=== PATIENT | male | born 1970 | race Caucasian/White ===

== ENCOUNTER 2017-10-26 19:40 | Emergency (ER) | payer SELFPAY ==
[2017-10-26 19:55] VITALS: BP 125/84
[2017-10-26] MEDS ORDERED: Ibuprofen TAB* 400 MG PO ONE (20:08)
[2017-10-26] MEDS ORDERED: Tetan/Diph/Pertus SYR(Tdap)* 0.5 ML SYR(BOOSTRIX) use SYR IM ONE (20:08)
[2017-10-26] MEDS ORDERED: Silver Sulfadiazine 1%* 20 GM TOPICAL ONE ×2 (20:08→20:36)
--- NOTE | 2017-10-26 20:11 | UC ---
HPI BURN - HPI Summary HPI Summary: 47 y/o male presents to the urgent care c/o B/l thumbs burned w/ a hot glue around 1630Pm today. Pt reports he works in the [email or web address] and he was gluing some art pieces w/ the hot gun. He accidentally put his thumbs on the hot glue. Pain is 7/10 burning. He only finds relief by placing thumbs in ice water. He took Ibuprofen this around noon time to alleviate a REDMOND. Pt denies numbness or tingling sensation over thumbs and can move them w/o any difficulty. Pt is not UTD w/ tetanus vaccine. Pt denies fever, SOB, chest pain, abdominal pain, N/V/D - History of Current Complaint Chief Complaint: UCBurn Stated Complaint: BURNED THUMBS Time Seen by Provider: 10/26/17 19:59 Hx Obtained From: Patient Occurred: Hours Ago - 2hrs ago Length of Exposure: Seconds Onset Severity: Moderate Current Severity: Moderate Pain Intensity: 7 Pain Scale Used: 0-10 Numeric Location: Other - B/L thumbs Character: Direct Thermal Contact, Blisters: Ruptured Aggravating Factor(s): Other - touch Alleviating Factor(s): Cool Soaks Associated Signs & Symptoms: Positive: Negative Occupational Injury: Yes - Allergy/Home Medications Allergies/Adverse Reactions: Allergies Allergy/AdvReac Type Severity Reaction Status Date / Time amoxicillin Allergy Rash Verified 10/26/17 19:56 CRAB Allergy Intermediate RED BODY Uncoded 10/26/17 19:56 Home Medications: Home Medications Vitamin B Complex TAB* [B Complex-50*] 1 tab PO DAILY 10/26/17 [History Confirmed 10/26/17] levOCARNitine tartrate [l-Carnitine] 10/26/17 [History Confirmed 10/26/17] PMH/Surg Hx/FS Hx/Imm Hx Previously Healthy: Yes Other Endocrine History: Vitamin d defficiency Psychological History: Depression - Surgical History Surgical History: Yes Surgery Procedure, Year, and Place: Right testicle removed 11/2013 - Social History Alcohol Use: Occasionally Alcohol Amount: 1-2 PER DAY Substance Use Type: None Smoking Status (MU): Never Smoked Tobacco Have You Smoked in the Last Year: No - Immunization History Most Recent Influenza Vaccination: none Most Recent Tetanus Shot: within last 5 years Most Recent Pneumonia Vaccination: no Review of Systems Constitutional: Negative Skin: Other - B/L thumbs burn w/ a hot glue Eyes: Negative ENT: Negative Respiratory: Negative Cardiovascular: Negative Gastrointestinal: Negative Genitourinary: Negative Motor: Negative Neurovascular: Negative Musculoskeletal: Other: - B/l thumb pain s/p burn Neurological: Negative Psychological: Negative Is Patient Immunocompromised?: No All Other Systems Reviewed And Are Negative: Yes Physical Exam - Summary Physical Exam Summary: Vital Signs Reviewed: Yes General: well developed, well nourished male sitting in the examining table w/o any apparent distress. Eyes: Positive: Conjunctiva Clear - PERRLA, EOMI ENT: Positive: Normal ENT inspection, Hearing grossly normal, Pharynx normal, TMs normal Neck: Positive: Supple, Nontender, No Lymphadenopathy Respiratory: Positive: Chest nontender, Lungs clear, Normal breath sounds Cardiovascular: Positive: RRR, No Murmur, Pulses Normal Abdomen Description: Positive: Nontender, No Organomegaly, Soft. Negative: CVA Tenderness (R), CVA Tenderness (L) Bowel Sounds: Positive: Present Musculoskeletal: Positive: Strength Intact, ROM Intact, No Edema Neurological Exam: Normal Psychological Exam: Normal Skin: Positive: rashes -Skin: Positive: B/L thumbs w/ superficial partial thickness erythema and discrete break in the skin of the left thumb. Left thumb burn is 1.0x2.0cm in size and Rt thumb burn is 1.6x 1.0cm in size, tender to palpation. mild swelling observed. skin blanches w/ pressure, FROM of the all fingers, sensation intact, brisk capillary refill. Triage Information Reviewed: Yes Vital Signs: Initial Vital Signs Temp 97.4 F 10/26/17 19:51 Pulse 68 10/26/17 19:51 Resp 16 10/26/17 19:51 BP 125/84 10/26/17 19:51 Pulse Ox 100 10/26/17 19:51 Burn Calculation - [place] Formula for Fluid Resuscitation Weight: 72.575 kg 24 -Hour Fluid Replacement: 0.0 Course/Dx Burn - Course Course Of Treatment: 47 y/o male presents to the urgent care c/o B/l thumbs burned w/ a hot glue around 1630Pm today. Pt reports he works in the [email or web address] and he was gluing some art pieces w/ the hot gun. He accidentally put his thumbs on the hot glue. Pain is 7/10 burning. He only finds relief by placing thumbs in ice water. He took Ibuprofen this around noon time to alleviate a REDMOND. Pt denies numbness or tingling sensation over thumbs and can move them w/o any difficulty. Pt is not UTD w/ tetanus vaccine. Pt denies fever , SOB, chest pain, abdominal pain, N/V/D. Hx obtained. Positive: B/L thumbs w/ superficial partial thickness erythema and discrete break in the skin of the left thumb. Left thumb burn is 1.0x2.0cm in size and Rt thumb burn is 1.6x 1.0cm in size, tender to palpation. mild swelling observed on examination. Pt Given Tdap vaccine by nurse. Silver sulfadiazine cream applied over both thumbs and the rest dispense home.B/L thumbs dressed w/ tube dressings. Pt also given ibuprofen PO at the clinic for pain. Pt tolerated well medication and Rx sent to pharmacy. D/c instructions explained. Pt left the clinic hemidynamically stable, A&OX3 - Differential Dx - Burn Differential Diagnoses: Chemical Burn, Direct Contact Thermal Burn, Other - Diagnoses Clinic Provider Diagnoses: 1- B/L thumbs superficial burn Discharge - Sign-Out/Discharge Documenting (check all that apply): Discharge/Admit/Transfer - D/C home - Discharge Plan Condition: Stable Disposition: HOME Prescriptions: Ibuprofen TAB* [Motrin TAB* 600 MG] 600 mg PO Q6H PRN #30 tab PRN Reason: Pain Silver Sulfadiazine 1%* [SILVadine 1%*] 1 applic TOPICAL BID #1 tube Patient Education Materials: Superficial Burn (ED) Referrals: Montana Real MD [Primary Care Provider] - 3 Days Additional Instructions: 1- Please apply Silver Silvadene cream around the superficial burn of the left cheek as directed 2- Take ibuprofen PO 600mg PO q6-8hrs prn to alleviate pain and swelling. Avoid flexion w/ your thumbs 3- If redness and swelling or signs of infection please return to the urgent care or f/u w/ your PCP for further treatment - Billing Disposition and Condition Condition: STABLE Disposition: HOME
== END 2017-10-26 20:45 | disposition home or self-care (01) ==
LOC: UCEAST 19:40
DX: T23.212A Burn of second degree of left thumb (nail), initial encounter (principal); T23.211A Burn of second degree of right thumb (nail), initial encounter; X12.XXXA Contact with other hot fluids, initial encounter; Y93.89 Activity, other specified; Y92.251 Museum as the place of occurrence of the external cause; Y99.0 Civilian activity done for income or pay; Z23 Encounter for immunization; Z88.0 Allergy status to penicillin; E55.9 Vitamin D deficiency, unspecified; F32.9 Major depressive disorder, single episode, unspecified
CPT/HCPCS: 90715; 99213; A9270-GY; G0463

== ENCOUNTER 2019-06-25 | Inpatient (IN) | payer OTHER ==
[2019-06-25] MEDS ORDERED: NS 0.9% 1000 ML** 2,000 ML IV ONE ×2 (00:24→00:25)
[2019-06-25] MEDS ORDERED: Ondansetron INJ* 2 MG/ML VIAL IV ONE (00:25)
[2019-06-25] MEDS ORDERED: Morphine 10 MG/ML VIAL (1 ml) IV ONE (00:25)
[2019-06-25] MEDS ORDERED: Morphine 4 MG/ML VIAL (1 ml) 4 MG/ML VIAL IV PRN (00:25)
--- NOTE | 2019-06-25 00:30 | ED ---
Abdominal Pain/Male - HPI Summary HPI Summary: Pt is a 48 y/o M presenting to the ED with abd pain initially onset on 2019 after eating lunch. He states he had a normal day, ate a small pizza for lunch, and had some pain that came on quickly after eating the pizza. The pain worsened over time, and he notes nausea, vomiting, and chills, and he was unable to sleep tonight because the pain continued to worsen in severity. Pt denies diarrhea. He rates the pain at 6-7/10 and locates it in the epigastric region. - History of Current Complaint Chief Complaint: EDAbdPain Stated Complaint: ABD PAIN PER PT Time Seen by Provider: 06/25/19 00:18 Hx Obtained From: Patient Onset/Duration: Sudden Onset, Lasting Hours, Still Present Timing: Constant, Lasting Hours Severity Initially: Moderate Severity Currently: Severe Pain Intensity: 7 Pain Scale Used: 0-10 Numeric Location: Epigastric Radiates: No Aggravating Factor(s): Nothing Alleviating Factor(s): Nothing Associated Signs And Symptoms: Positive: Nausea, Vomiting. Negative: Diarrhea - Allergies/Home Medications Allergies/Adverse Reactions: Allergies Allergy/AdvReac Type Severity Reaction Status Date / Time amoxicillin Allergy Rash Verified 10/26/17 19:56 CRAB Allergy Intermediate RED BODY Uncoded 10/26/17 19:56 PMH/Surg Hx/FS Hx/Imm Hx Previously Healthy: Yes Endocrine/Hematology History: Denies: Hx Diabetes Cardiovascular History: Denies: Hx Hypertension, Other Cardiovascular Problems/Disorders History: Reports: Other Problems/Disorders - testicular cancer Denies: Hx Renal Disease Musculoskeletal History: Reports: Hx Back Problems - 1 yr low back pain, not bad now Sensory History: Reports: Hx Contacts or Glasses Denies: Hx Hearing Aid Opthamlomology History: Reports: Hx Contacts or Glasses Neurological History: Reports: Hx Headaches - twice a month Psychiatric History: Reports: Hx Anxiety - ON MEDS, Hx Depression - ON MEDS Denies: Hx Post Traumatic Stress Disorder, Hx Suicide Attempt, Hx of Violent Episodes Against Others, Hx Substance Abuse - Cancer History Cancer Type, Location and Year: Testicular Hx Chemotherapy: Yes Hx Radiation Therapy: No - Surgical History Surgery Procedure, Year, and Place: Right testicle removed 11/2013 Hx Anesthesia Reactions: No - Immunization History Date of Tetanus Vaccine: pt states unknown Date of Influenza Vaccine: none Infectious Disease History: No Infectious Disease History: Denies: Traveled Outside the [place] in Last 30 Days - Family History Known Family History: Negative: Renal Disease - Social History Alcohol Use: Occasionally Alcohol Amount: 1-2 PER DAY Hx Substance Use: No Substance Use Type: Reports: None Hx Tobacco Use: No Smoking Status (MU): Never Smoked Tobacco Have You Smoked in the Last Year: No Review of Systems Positive: Chills Positive: Abdominal Pain, Vomiting, Nausea. Negative: Diarrhea All Other Systems Reviewed And Are Negative: Yes Physical Exam - Summary Physical Exam Summary: Appearance: Well-appearing, Well-nourished, lying in bed comfortably Skin: Warm, dry, no obvious rash Eyes: sclera anicteric, no conjunctival pallor ENT: mucous membranes moist, pharynx appears normal Neck: Supple, nontender Respiratory: Clear to auscultation, no signs of respiratory distress Cardiovascular: Normal S1, S2. No murmurs. Normal distal pulses in tibial and radial bilaterally. Abdomen: Soft, mild tenderness in the epigastrium and RUQ, normal active bowel sounds present Musculoskeletal: Normal, Strength/ROM Intact Neurological: A&Ox3, awake and alert, mentation is normal, speech is fluent and appropriate Psychiatric: affect is normal, does not appear anxious or depressed Triage Information Reviewed: Yes Vital Signs On Initial Exam: Initial Vitals Temp Pulse Resp BP Pulse Ox 96.6 F 70 20 132/68 100 06/25/19 00:09 06/25/19 00:09 06/25/19 00:09 06/25/19 00:09 06/25/19 00:09 Vital Signs Reviewed: Yes Procedures - Sedation Patient Received Moderate/Deep Sedation with Procedure: No Diagnostics - Vital Signs Vital Signs Temp Pulse Resp BP Pulse Ox 06/25/19 00:09 96.6 F 70 20 132/68 100 - Laboratory Result Diagrams: 06/27/19 05:02 06/27/19 05:02 Lab Statement: Any lab studies that have been ordered have been reviewed, and results considered in the medical decision making process. - CT CT a/p CT Interpretation Completed By: Radiologist Summary of CT Findings: THICKENING OF THE WALL OF THE CECUM, ASCENDING AND TRANSVERSE COLON. THIS RAISES THE POSSIBILITY OF AN INFLAMMATORY OR INFECTIOUS BOWEL DISEASE. NO SIGNIFICANT MESENTERIC INFLAMMATION. NO FREE INTRA-ABDOMINAL FLUID. NO MESENTERIC OR PERIAORTIC ADENOPATHY ADENOPATHY. ED physician has reviewed this report. Abdominal Pain Male Course/Dx - Course Course Of Treatment: Pt is a 48 y/o M presenting to the ED with abd pain initially onset on 06/24/2019 after eating lunch. The pain worsened over time, and he notes nausea, vomiting, and chills, and he was unable to sleep tonight because the pain continued to worsen in severity. Pt denies diarrhea. He rates the pain at 6-7/10 and locates it in the epigastric region. On exam, there is mild tenderness in the epigastrium and RUQ. CT a/p shows: THICKENING OF THE WALL OF THE CECUM, ASCENDING AND TRANSVERSE COLON. THIS RAISES THE POSSIBILITY OF AN INFLAMMATORY OR INFECTIOUS BOWEL DISEASE. NO SIGNIFICANT MESENTERIC INFLAMMATION. NO FREE INTRA-ABDOMINAL FLUID. NO MESENTERIC OR PERIAORTIC ADENOPATHY ADENOPATHY. I spoke with Dr. Mendez about the pt's present condition at 0450 who will be coming to the ED to evaluate the pt for admission. Dx includes abd pain and colitis of ascending and descending colon. - Diagnoses Provider Diagnoses: Abdominal pain, Colitis - Provider Notifications Discussed Care Of Patient With: Katherine Mendez Time Discussed With Above Provider: 04:50 Instructed by Provider To: Admit As Inpatient Discharge ED - Sign-Out/Discharge Documenting (check all that apply): Patient Departure - Discharge Plan Condition: Stable Disposition: ADMITTED TO [facility] - Billing Disposition and Condition Condition: STABLE Disposition: Admitted to [facility] - Attestation Statements Document Initiated by Scribe: Yes Documenting Scribe: Deisi Quispe Provider For Whom Kassie is Documenting (Include Credential): Aaron Mora MD. Scribe Attestation: Deisi Wilkinson, meded for Aaron Mora MD. on 06/29/19 at 0456. Scribe Documentation Reviewed: Yes Provider Attestation: The documentation as recorded by the Deisi condon accurately reflects the service I personally performed and the decisions made by me, Aaron Mora MD. Status of Scribe Document: Viewed
[2019-06-25 00:55] LABS: ABS Basophils 0.1 10^3/ul (0-0.2); ABS Lymphocytes 0.5 10^3/ul (1.0-4.8); ABS Monocytes 0.3 10^3/ul (0-0.8); Hematocrit 41 % (42-52); Hemoglobin 14.5 g/dL (14.0-18.0); Lymphocyte % 5.5 %; Mean Corpuscular HGB Conc 36 g/dL (31-36); Mean Corpuscular Hemoglobin 32 pg (27-31); Mean Corpuscular Volume 90 fL (80-94); Mean Platelet Volume 6.9 fL (7.4-10.4); Platelet Count 166 10^3/uL (150-450); Red Blood Count 4.54 10^6 /uL (4.18-5.48); Red Cell Distribution Width 13 % (10-15); White Blood Count 9.9 10^3/uL (3.5-10.8)
[2019-06-25 01:16] LABS: ALT 21 U/L (7-52); AST 21 U/L (13-39); Albumin 4.5 g/dL (3.2-5.2); Alkaline Phosphatase 47 U/L (34-104); Anion Gap 10 mmol/L (2-11); BUN/Creatinine Ratio 17.6 (8-20); Blood Urea Nitrogen 21 mg/dL (6-24); C Reactive Protein 6.49 mg/L (<8.01); CO2 Carbon Dioxide 24 mmol/L (22-32); Calcium 9.1 mg/dL (8.6-10.3); Chloride 103 mmol/L (101-111); EGFR African American 78.3 (>60); EGFR Non-African American 64.7 (>60); Globulin 2.2 g/dL (2-4); Glucose 150 mg/dL (70-100); Potassium 3.8 mmol/L (3.5-5.0); Sodium 137 mmol/L (135-145); Total Protein 6.7 g/dL (6.4-8.9)
[2019-06-25] MEDS ORDERED: Iohexol 300* (CONTRAST) 10 ML SDV IV ONE (01:53)
[2019-06-25 04:08] LABS: Urine Appearance Clear; Urine Bilirubin Negative (Negative); Urine Blood Negative (Negative); Urine Color Yellow; Urine Glucose Negative (Negative); Urine Ketones 1+ (Negative); Urine Nitrite Negative (Negative); Urine Protein Negative (Negative); Urine Urobilinogen Negative (Negative)
[2019-06-25] MEDS ORDERED: Piperacillin/Tazobac ADVAN(*) 3.375 GM in NS 0.9% 100 ML* 100 ML IVPB ONE (05:00)
[2019-06-25] MEDS ORDERED: Ondansetron INJ* 2 MG/ML VIAL IV PRN (05:39)
[2019-06-25] MEDS ORDERED: metroNIDAZOLE IV 500 MG/100ML* 500 MG/100 ML BAG IVPB ONE (05:49)
[2019-06-25] MEDS ORDERED: cefTRIAXone(*) 1 GM ADVAN/BAG ONE (05:49)
[2019-06-25] MEDS ORDERED: metroNIDAZOLE IV 500 MG/100ML* 500 MG/100 ML BAG IVPB SCH (06:00)
[2019-06-25] MEDS ORDERED: cefTRIAXone(*) 1 GM in NS 0.9% 50 ML* 50 ML IVPB ONE (06:00)
[2019-06-25] MEDS: NS 0.9% 1000 ML** 1,000 ML IV SCH ×3 (06:16→23:06)
--- NOTE | 2019-06-25 08:31 | HP ---
CC: Dr. Montana Real * HISTORY AND PHYSICAL: DATE OF ADMISSION: 06/25/19 PRIMARY CARE PROVIDER: Dr. Montana Real. CHIEF COMPLAINT: Abdominal pain. HISTORY OF PRESENT ILLNESS: This is a 48-year-old male with past medical history of testicular cancer, status post chemo and surgery, anxiety, who now presents to the emergency room because of abdominal pain. The abdominal pain started at roughly 2 p.m. on afternoon, roughly about 14 to 15 hours prior to my evaluation. The patient was described as aching sensation, which initially was 2 to 3/10. He finished his work and came home. He states that the pain gradually worsened to 8/10, that is when why he decided to come to the emergency room. He initially states that he went home, was feeling tired and he decided to go bed early thinking that it was probably food poisoning and it would just pass on its own. However, the pain became worse and therefore he decided to come to the emergency room. It was associated with nausea as well as vomiting. When he vomited, he had some relief with the pain; however, the pain recurred and worsened. He also tried to defecate and had about 6 episodes of small bowel movement with soft bowel movement, nonbloody; this did not help his pain. In the emergency room, the patient was seen and evaluated, received morphine, which helped this pain, CAT scan and imaging, blood work was obtained , subsequently the hospitalist service was contacted. PAST MEDICAL HISTORY: 1. Testicular cancer, diagnosed in October of 2013, status post surgery and chemo. 2. Anxiety. PAST SURGICAL HISTORY: Orchiectomy in December of 2013. MEDICATIONS: Home medications include: 1. Ibuprofen 600 mg every 6 hours as needed for pain. 2. Vitamin D 2000 units daily. 3. Xanax 0.25 mg 3 times a day as needed. 4. Paroxetine 20 mg daily. ALLERGIES: Include AMOXICILLIN and crab. AMOXICILLIN gives him a rash. FAMILY HISTORY: Father: Myocardial infarction in his 50s. SOCIAL HISTORY: The patient lives at home with his , does not smoke, no alcohol use. The patient works at [employer]. Of late, has been putting in, according to the , long hours, working more and working long hours, working 10 hours 5 days a week, and he is getting exhausted from it. PHYSICAL EXAMINATION GENERAL: This is a well-developed, well-nourished male, lying in bed, in no acute distress. VITAL SIGNS: Blood pressure 132/68, oxygenation of 100% on room air, respiratory rate of 20, pulse rate of 70, temperature of 96.6 Fahrenheit. HEENT: Pupils are equal round, reactive to light, atraumatic, normocephalic. Oral mucosa is dry. There is no nystagmus. NECK: Supple with no JVD. LUNGS: There is no tachypnea, no use of accessory muscles. Lungs are clear to auscultation without any wheezing, rales, or rhonchi. HEART: There is no chest wall tenderness. Regular rate and rhythm. No murmurs , rubs or gallops. ABDOMEN: Normoactive bowel sounds. Abdomen is soft, with mild generalized tenderness with no residual guarding. Abdomen is nondistended. EXTREMITIES: No lower extremity edema. No calf tenderness. NEUROLOGICAL: The patient is awake, alert, oriented x3 with no focal neurological deficit. SKIN: Warm and dry with no rashes or lesions. DIAGNOSTIC STUDIES/LAB DATA: WBC of 9.9, hemoglobin of 14.5, hematocrit of 41 , platelets of 166. Sodium of 137, potassium of 3.8, chloride of 103, BUN of 21 , creatinine of 1.19, glucose of 150, total bilirubin of 0.80, AST of 21, ALT of 21, alkaline phosphatase of 47, CRP of 6.49. Urinalysis shows 1+ ketone, specific gravity 1.020, nitrite negative, negative bilirubin, negative glucose, negative leuk esterases. The patient had an abdominal CT done, which revealed thickening of the wall of the cecum, ascending and transverse colon. This raises possibly of an inflammatory or infectious disease. No significant mesenteric inflammation. No free intraperitoneal fluid. No mesenteric or paraaortic adenopathy. IMPRESSION AND PLAN: 1. Abdominal pain with possible suggestion of inflammation at the colon. This could be colitis versus gastroenteritis. We will start the patient on IV fluids , clear liquid diet, pain control, and start Rocephin, Flagyl. Discussed with the patient and at bedside- he should have an outpatient colonoscopy- as he is 48 years of age, history of cancer, and findings suggestive of colitis. 2. History of anxiety. Continue paroxetine. 3. DVT prophylaxis with sequential compression device. 4. We will advance diet as tolerated and we will start antiemetics p.r.n. nausea. [id number]/[facility] #: [id number] [facility] [place] [facility]
[2019-06-25] MEDS: PARoxetine HCL TAB* 20 MG PO SCH (11:17)
--- NOTE | 2019-06-25 11:43 | PN ---
Hospitalist Progress Note Date of Service: 06/25/19 Mr. Plummer is a 48 yo male, admitted early this morning with concern for abdominal pain with suggestion of inflammation in the colon. He denies feeling feverish, notes that he still has abdominal pain. Previously was in epigastric region but moving toward right side (not as intense). Sipping on full liquids, no n/v. No Bm since yesterday. Exam: AOx3. CV: RRR Lungs: CTA Abd: No rebound tenderness, BS +, diffusely tender. soft, non distended Neuro: No focal deficits. Continue IVF, pain control, IV antibiotics. Will check in later today.
[2019-06-25] MEDS: metroNIDAZOLE IV 500 MG/100ML* 500 MG/100 ML BAG IVPB SCH ×2 (14:27→23:06)
[2019-06-25] MEDS: Morphine INJ* 2 MG/ML 1 ML SYRINGE (TWO MG - NEW SYRINGE VERSION) IV PRN (14:31)
[2019-06-25] MEDS: Acetaminophen TAB* 325 MG PO PRN (20:05)
[2019-06-26] MEDS: cefTRIAXone(*) 1 GM in NS 0.9% 50 ML* 50 ML IVPB SCH (05:45)
[2019-06-26] MEDS: metroNIDAZOLE IV 500 MG/100ML* 500 MG/100 ML BAG IVPB SCH ×3 (06:03→23:08)
[2019-06-26] MEDS: PARoxetine HCL TAB* 20 MG PO SCH (09:50)
[2019-06-26 10:15] LABS: ABS Lymphocytes 0.6 10^3/ul (1.0-4.8); ABS Monocytes 0.7 10^3/ul (0-0.8); ABS Neutrophils 10.7 10^3/ul (1.5-7.7); Hematocrit 38 % (42-52); Hemoglobin 13.4 g/dL (14.0-18.0); Lymphocyte % 5.2 %; Mean Corpuscular HGB Conc 35 g/dL (31-36); Mean Corpuscular Hemoglobin 32 pg (27-31); Mean Corpuscular Volume 91 fL (80-94); Mean Platelet Volume 6.9 fL (7.4-10.4); Platelet Count 143 10^3/uL (150-450); Red Blood Count 4.18 10^6 /uL (4.18-5.48); Red Cell Distribution Width 13 % (10-15); White Blood Count 12.1 10^3/uL (3.5-10.8)
[2019-06-26 10:18] LABS: BUN/Creatinine Ratio 12.5 (8-20); C Reactive Protein 172.4 mg/L (<8.01); Calcium 8.3 mg/dL (8.6-10.3); EGFR African American 77.5 (>60); EGFR Non-African American 64.1 (>60); Potassium 3.6 mmol/L (3.5-5.0)
--- NOTE | 2019-06-26 10:45 | PN ---
Subjective Date of Service: 06/26/19 Interval History: Patient seen and examined at bedside. Tmax overnight 102.9 Tyler is a 48 yo male, admitted yesterday with concern for abdominal pain. Over the course of the day yesterday, the pain moved from the epigastrum to the RLQ with increased tenderness. He is tolerating small sips of clears and full liquids. Denies melena/hematechezia - last BM was prior to admission. No emesis. Does not feel nauseous but has no appetite. Denies CP, SOB. Family History: Unchanged from Admission Social History: Unchanged from Admission Past Medical History: Unchanged from Admission Objective Active Medications: Acetaminophen (Tylenol Tab*) 650 mg PO Q6H PRN PRN Reason: MILD PAIN or TEMP > 100.4 Last Admin: 06/25/19 20:05 Dose: 650 mg Sodium Chloride (Ns 0.9% 1000 Ml) 1,000 mls @ 100 mls/hr IV PER RATE [facility] Last Admin: 06/25/19 23:06 Dose: 100 mls/hr Ceftriaxone Sodium 1 gm/ (Sodium Chloride) 50 mls @ 200 mls/hr IVPB Q24H [facility] Last Admin: 06/26/19 05:45 Dose: 200 mls/hr Metronidazole/Sodium Chloride (Flagyl 500 Mg Ivpb*) 500 mg in 100 mls @ 100 mls /hr IVPB 0630,1430,2230 [facility] Last Admin: 06/26/19 06:03 Dose: 100 mls/hr Morphine Sulfate (Morphine Inj (Syringe))*) 2 mg IV Q4H PRN PRN Reason: PAIN - SEVERE Last Admin: 06/25/19 14:31 Dose: 2 mg Ondansetron HCl (Zofran Inj*) 4 mg IV Q6H PRN PRN Reason: NAUSEA Paroxetine HCl (Paxil Tab*) 20 mg PO DAILY [facility] Last Admin: 06/26/19 09:50 Dose: 20 mg Vital Signs - 8 hr 06/26/19 06/26/19 04:13 07:15 Temperature 99.9 F 99.7 F Pulse Rate 91 89 Respiratory 19 22 Rate Blood Pressure 93/46 91/45 (mmHg) O2 Sat by Pulse 95 96 Oximetry Oxygen Devices in Use Now: None Appearance: 48 yo male, lying in bed, alert, NAD Eyes: No Scleral Icterus, PERRLA Ears/Nose/Mouth/Throat: Clear Oropharnyx, Mucous Membranes Moist Neck: NL Appearance and Movements; NL JVP Respiratory: Symmetrical Chest Expansion and Respiratory Effort, Clear to Auscultation Cardiovascular: NL Sounds; No Murmurs; No JVD, RRR, No Edema Abdominal: - - soft, tender to RUQ and more so to RLQ; BS present. No distention Lymphatic: No Cervical Adenopathy, No Inguinal Adenopathy Extremities: No Edema, No Clubbing, Cyanosis Skin: No Rash or Ulcers, - - hot to touch, diaphoretic Neurological: Alert and Oriented x 3, NL Muscle Strength and Tone Lines/Tubes/Other Access: Clean, Dry and Intact Peripheral IV Result Diagrams: 06/26/19 09:51 06/26/19 09:56 Assess/Plan/Problems-Billing Assessment: Mr. Plummer is a 48 yo male with a PMH significant for testicular ca s/p chemo and RT and anxiety who presented to the ER on 06/25/19 with concern for abdominal pain. - Patient Problems (1) Abdominal pain Code(s): R10.9 - UNSPECIFIED ABDOMINAL PAIN Comment: CT abd/pelvis 06/25 showed suggestion of inflammation of the colon Pt placed on ceftriaxone and metronidazole (due to amoxicillin allergy) which continues Pain has localized to right side and is most notable in RLQ Awaiting abdominal US; discussed case with Dr. Goldman and rental sales representative [facility] recommends increasing fluids and monitoring I/O which is ordered Continue antibiotics (lactic acid normal) Consider GI consult if abdominal US without significant findings or patient presents with worsening symptoms. Check C. Diff PCR (2) Sepsis Comment: Source: likely abdominal pathology Meets sepsis criteria 2/2 abdominal pathology with temp 102, MAP 60, SBP 90s, WBC count 12,100. Continue ceftriaxone and Flagyl Increase IVF to LR @ 125 (3) Anxiety Code(s): F41.9 - ANXIETY DISORDER, UNSPECIFIED Comment: Continue supportive care Continue home paroxetine (4) DVT prophylaxis Code(s): Z29.9 - ENCOUNTER FOR PROPHYLACTIC MEASURES, UNSPECIFIED Comment: SCDs Status and Disposition: OBV admit. Anticipate discharge to home when medically stable. Attending: Estelle Shane
[2019-06-26] MEDS: NS 0.9% 1000 ML** 1,000 ML IV SCH (11:19)
[2019-06-26] MEDS: Morphine INJ* 2 MG/ML 1 ML SYRINGE (TWO MG - NEW SYRINGE VERSION) IV PRN (11:26)
[2019-06-26] MEDS: Lactated Ringers 1000 ML Bag* 1,000 ML IV SCH ×2 (12:57→21:43)
[2019-06-26] MEDS: Acetaminophen TAB* 325 MG PO PRN (14:30)
--- NOTE | 2019-06-26 16:51 | CONSULT ---
Consult Consult: Full consult dictated. Dx: acute abdomen, r/o appendicitis Plan: Diagnostic laparoscopy, possible appendectomy
[2019-06-26] MEDS ORDERED: Bupivacaine 0.25% EPI 200,000* 30 ML SDV ONE (16:56)
[2019-06-26] MEDS ORDERED: cefTRIAXone(*) 1 GM ADVAN/BAG ONE (17:21)
[2019-06-26] MEDS ORDERED: Rocuronium* 10 MG/ML VIAL ONE (17:28)
[2019-06-26] MEDS ORDERED: Propofol* 10 MG/ML 20 ML BTL ONE (17:29)
[2019-06-26] MEDS ORDERED: Dexamethasone IV* 4 MG/ML 1 ML (4 MG) ONE (17:29)
[2019-06-26] MEDS ORDERED: Propofol* 500 MG/50 ML BTL ONE (17:29)
[2019-06-26] MEDS ORDERED: Lidocaine 2% PF * 5 ML VIAL ONE (17:29)
[2019-06-26] MEDS ORDERED: Dexmedetomidine* 200 MCG/2 ML 2 ML VIAL ONE (17:53)
--- NOTE | 2019-06-26 18:38 | CONS ---
AMENDED REPORT NOW INCLUDES DATE OF CONSULT - ESIGNED BEFORE ADJUSTMENTS [facility]: [facility]; Primary care physician; Dr. Santos Benítez * SURGICAL CONSULTATION REPORT: DATE OF CONSULTATION: 06/26/19 HISTORY OF PRESENT ILLNESS: I was contacted by the hospitalist service to evaluate Mr. Plummer, a 48-year-old gentleman, who was admitted yesterday morning after presenting to the hospital late with complaints of abdominal pain. Workup in the emergency room included CAT scan and labs. The patient was noted to have a CT scan consistent with ascending and transverse colitis and was admitted and placed on antibiotics. The patient's course was mostly unchanged and then he started to spike fever as high as 102.9 and the concern that the patient had possibly other diagnoses led to an appendiceal ultrasound. This ultrasound was reviewed by the radiologist, who then looked at the CT scan and was concerned for possible appendicitis that had not been previously reported. The patient describes onset of pain , it is accompanied with nausea and he made attempts to vomit without any relief. He did spontaneously vomit or dry heave upon arrival to the emergency room. He denied any dysuria, no change in bowel habits, no constipation or obstipation. The patient denies any previous similar symptoms. Pain was in the upper abdomen and now has moved to the right lower quadrant, it is not radiating, it is improved with rest and narcotics. The patient is PENICILLIN allergic and was started on ceftriaxone and Flagyl. PAST MEDICAL HISTORY: 1. Anxiety. 2. Testicular cancer. PAST SURGICAL HISTORY: Orchiectomy along with chemoradiation following this. FAMILY HISTORY: Noncontributory. SOCIAL HISTORY: He lives with his . He works at the [employer]. He is nonsmoker. REVIEW OF SYSTEMS: On review of systems, fevers as described. No shortness of breath or chest pain. Good exercise tolerance. Abdominal pain as described. Nausea as described. No dysuria. Cancer as described. He did have a complication after orchiectomy that led to a short hospitalization and possible narcotic over use. He denies any bleeding or clotting disorders. No endocrine disorders. PHYSICAL EXAMINATION: The patient's T-max is 102.9, T-current 99. Blood pressure 116/64, respirations 19, O2 sat 94 on room air, pulse 89. He is alert and oriented x3 in no apparent distress. Sclerae are anicteric. Mucous membranes are dry. Neck: No lymphadenopathy. Abdomen: Soft, nondistended. Tender at right lower quadrant with tenderness to percussion. No Rovsing sign. No Psoas sign. No hernias noted. Rectal: Exam not performed. Extremities: With mild edema. DIAGNOSTIC STUDIES/LABORATORY DATA: CT scan reviewed and discussed with the radiologist, concern for a phlegmonous changes of the appendix, appears retrocecal, mild dilation of the transverse colon, which may or may not be secondary to this. No free air, no free fluid. Labs show a white count that had gone from 10 to 12.1 with left shift. Chemistry panel reviewed. IMPRESSION: Acute abdomen, likely appendicitis. RECOMMENDATIONS: Recommendations for diagnostic laparoscopy and possible appendectomy. I outlined the details of the procedure to him and his , going over the risks, benefits and alternatives. I spoke of the possibility of drainage only and the possibility of appreciating injury to the colon that would require a bowel resection and possible laparotomy. The patient's questions were answered. We discussed the alternatives of watchful waiting and antibiotics. I did not recommend this and the patient did not choose to go in that direction either. The patient will continue to get antibiotics. He will on-call to the operating room and we will take him for general anesthesia for diagnostic laparoscopy, possible appendectomy. [id number]/[facility] #: [id number] MTDD
[2019-06-26] MEDS ORDERED: Naloxone* 0.4 MG/ML 1 ML VIAL IV PRN (18:45)
[2019-06-26] MEDS ORDERED: HYDROmorphone INJ1* 1 MG/ML SYRINGE ONE (19:17)
[2019-06-26] MEDS: HYDROmorphone INJ1* 1 MG/ML SYRINGE IV PRN ×2 (19:18→20:03)
--- NOTE | 2019-06-26 19:18 | OP ---
Operative Report - Blank - Operative Report Date of Operation: 06/26/19 Note: Pre-OP Diagnoses: acute abdomen, r/o appendicitis Post-op Diagnosis: acute perforated appendicitis Procedure: Laparoscopic appendectomy Surgeon: Jones Asst: none Anethesia: GETA EBL: 50cc IVF: crystalloid Specimen: appendix Drains: #7 JUNG
--- NOTE | 2019-06-26 20:06 | PN ---
Hospitalist Progress Note Date of Service: 06/26/19 Patient seen at 1940 post operatively. He was able to open his eyes to his name and wave and called this provider by name. BP is soft, MAP currently 62-64, bolus has been started. Exam: drowsy but responds appropriately to stimuli. CV: RRR, distal pulses 2+ and symmetrical to bilateral radial/popliteal/ dorsalis pedal/posterior tibialis sites. Brisk cap refill Lungs: CTA. MS: NICHOLAS with purpose A/P: 48 yo male, initially admitted with concern for colitis with evolving abdominal pain and sepsis; s/p exploratory lap with appendectomy. Found to have perforated appendicitis perioperatively. Currently with SBP in the 80s and MAP < 70. Patient seen in collaboration with surgeon and district court administrator. Plan to transfer patient to ICU for close monitoring and escalation of interventions if needed. Plan of care reviewed with patient and his partner, Linette. Agree with current bolus and aggressive IVF resuscitation. Continue IV ceftriaxone and metronidazole.
[2019-06-26 22:06] LABS: ABS Lymphocytes 0.4 10^3/ul (1.0-4.8); ABS Monocytes 0.4 10^3/ul (0-0.8); ABS Neutrophils 6.9 10^3/ul (1.5-7.7); Eosinophil % 0.1 %; Hematocrit 37 % (42-52); Hemoglobin 12.7 g/dL (14.0-18.0); Lymphocyte % 5.1 %; Mean Corpuscular HGB Conc 35 g/dL (31-36); Mean Corpuscular Hemoglobin 31 pg (27-31); Mean Corpuscular Volume 91 fL (80-94); Mean Platelet Volume 6.7 fL (7.4-10.4); Platelet Count 132 10^3/uL (150-450); Red Blood Count 4.06 10^6 /uL (4.18-5.48); Red Cell Distribution Width 13 % (10-15); White Blood Count 7.6 10^3/uL (3.5-10.8)
[2019-06-26 22:16] LABS: BUN/Creatinine Ratio 16.5 (8-20); Calcium 7.8 mg/dL (8.6-10.3); EGFR African American 92.5 (>60); EGFR Non-African American 76.4 (>60)
[2019-06-26] MEDS ORDERED: NS 0.9% 500 ML* 500 ML IV ONE (22:57)
--- NOTE | 2019-06-27 03:38 | OP ---
CC: Dr. Santos Benítez; [facility]; Primary Care Doctor OPERATIVE REPORT: DATE OF OPERATION: 06/26/19 DATE OF : 66 SURGEON: Amadou oGldman MD. DRILL DOCTOR: None. ANESTHESIA: General anesthesia. PRE-OP DIAGNOSIS: Acute abdomen. POST-OP DIAGNOSIS: Acute perforated appendicitis. OPERATIVE PROCEDURE: Laparoscopic appendectomy. ESTIMATED BLOOD LOSS: 50 cc. IV FLUIDS: Crystalloid. Please see anesthesia report for details. SPECIMEN: Appendix, perforated. DRAINS: A #7 JUNG drain left at the end of the procedure at the appendiceal abscess site. The patient was extubated and transferred to the PACU. INDICATIONS: Mr. Plummer is a 48-year-old gentleman diagnosed with acute abdomen with concern for curtis endicitis that was marked and consent signed. DESCRIPTION OF PROCEDURE: He was taken to the operating room where he received a single dose of Roce phin. He had already been on Rocephin and Flagyl. Sequential devices were placed in the bilateral l ower extremities. General anesthesia was induced. The patient's abdomen was prepped and draped in t he standard surgical fashion. A time-out was performed. Folds of the umbilicus were elevated anteriorly and a Veress needle was inserted into the abdominal c avity, which was then allowed to insufflate to a pressure of 15 mmHg. The patient tolerated the insu fflation well. A 12 mm Optical trocar was then placed in the right upper quadrant and the Veress nee dle was removed under direct vision. The abdomen showed fluid in the pelvis and on the gutter and ov er the liver. Small bowel appeared intact. Then, we placed 2 additional 5 mm trocars at the umbilic al site and at the suprapubic area. The table was repositioned. The cecum was identified. This was rotated medially and what appeared t o be the base of the appendix was identified. We took the lateral attachments down with a sharp and blunt dissection and identified an appendiceal abscess with perforation of the appendix and stool exi ting. We suctioned this off and continued our blunt dissection to bring the appendix at the midline. It was the tip of the appendix that had perforated. I was able to get a window through what I felt was a mesoappendix and we fired a 45 mm quintanilla YONAS stapling device across this and I was able to move t he appendix more towards the midline and take out this tight kink in it. We still had additional att achments laterally and these turned out to be the appendiceal artery. This was avulsed and required clip fire to taking hemostasis and then we opened the LigaSure as well and utilized this for hemostas is. Once hemostasis was achieved, we were able to bring the appendix to the midline and through a he althy tissue at the base of the cecum a 45 mm quintanilla YONAS stapling device was fired. The appendix was th en placed in the endoscopic retrieval bag and placed over the liver. Attention was turned towards the appendiceal stump. There was no bleeding. No enteric contents. We irrigated copiously with approximately a liter and half of warm saline and then turned our attention over the liver and suctioned serous fluid at this site and also fluid in the pelvis. Review of the abdomen showed no additional disease and the appendix was removed from the right upper quadrant port site. The abdomen was allowed to collapse. Trocars were removed under direct vision and all 3 skin incisions were reapproximated with 4-0 Monocryl subcuticular sutures. Steri-Strips and sterile dress ing were applied. On the back table, the appendix was opened up. We were able to see the full appen kim without any evidence that we only took a portion of it. It was in continuity with the exc eption of the perforation at the tip and it was passed off as a specimen. The patient was woken up a nd transferred to the PACU in stable condition. [id number]/[facility] #: [id number]
[2019-06-27] MEDS: Acetaminophen TAB* 325 MG PO PRN ×3 (03:54→23:19)
[2019-06-27 05:13] LABS: ABS Lymphocytes 0.4 10^3/ul (1.0-4.8); ABS Monocytes 0.5 10^3/ul (0-0.8); ABS Neutrophils 8.3 10^3/ul (1.5-7.7); Hematocrit 37 % (42-52); Hemoglobin 12.7 g/dL (14.0-18.0); Lymphocyte % 3.8 %; Mean Corpuscular HGB Conc 35 g/dL (31-36); Mean Corpuscular Hemoglobin 32 pg (27-31); Mean Corpuscular Volume 91 fL (80-94); Mean Platelet Volume 6.8 fL (7.4-10.4); Platelet Count 130 10^3/uL (150-450); Red Cell Distribution Width 13 % (10-15); White Blood Count 9.2 10^3/uL (3.5-10.8)
[2019-06-27 05:30] LABS: Albumin 3.4 g/dL (3.2-5.2); Albumin/Globulin Ratio 1.6 (1-3); BUN/Creatinine Ratio 15.3 (8-20); Calcium 7.9 mg/dL (8.6-10.3); Globulin 2.1 g/dL (2-4); Total Bilirubin 0.6 mg/dL (0.2-1.0); Total Protein 5.5 g/dL (6.4-8.9)
[2019-06-27] MEDS: Lactated Ringers 1000 ML Bag* 1,000 ML IV SCH (05:44)
[2019-06-27] MEDS: cefTRIAXone(*) 1 GM in NS 0.9% 50 ML* 50 ML IVPB SCH (05:51)
[2019-06-27] MEDS: oxyCODONE/Acetamin 5/325 MG* TAB PO PRN ×2 (06:04→22:49)
[2019-06-27] MEDS: metroNIDAZOLE IV 500 MG/100ML* 500 MG/100 ML BAG IVPB SCH ×3 (06:24→22:49)
[2019-06-27] MEDS: PARoxetine HCL TAB* 20 MG PO SCH (08:49)
[2019-06-27] MEDS ORDERED: Lactated Ringers 1000 ML Bag* 1,000 ML IV SCH (09:24)
--- NOTE | 2019-06-27 11:44 | PN ---
<Yanna Davenport - Last Filed: 06/27/19 12:21> Progress Note - Progress Note Date of Service: 06/27/19 Note: Progress Note -- Critical Care 24 hour events/significant events: - S/p appendectomy which was perforated. He was continued on antibiotics. - Post op he was noted to be hypotensive and was transferred to ICU. He was bolused with fluid and recovered. Has JUNG drain. - Continues to have some abdominal pain, especially with movement. ROS: negative except for pertinent positives mentioned above Tele: NSR, no ectopy Vitals: Vital Signs 06/26/19 06/26/19 06/26/19 13:00 14:21 15:15 Temperature 101.7 F 99 F Pulse Rate 89 Respiratory 22 19 Rate Blood Pressure 140/60 (mmHg) O2 Sat by Pulse 94 Oximetry 06/26/19 06/26/19 06/26/19 16:48 19:05 19:10 Temperature 97.3 F Pulse Rate 68 75 Respiratory 12 Rate Blood Pressure 116/64 78/44 70/45 (mmHg) O2 Sat by Pulse 85 90 Oximetry 06/26/19 06/26/19 06/26/19 19:15 19:18 19:20 Temperature Pulse Rate 72 67 Respiratory 20 12 Rate Blood Pressure 90/56 88/54 (mmHg) O2 Sat by Pulse 95 95 Oximetry 06/26/19 06/26/19 06/26/19 19:30 19:36 20:00 Temperature 99.5 F Pulse Rate 69 67 66 Respiratory 18 5 6 Rate Blood Pressure 86/53 94/50 88/49 (mmHg) O2 Sat by Pulse 95 95 97 Oximetry 06/26/19 06/26/19 06/26/19 20:03 20:11 20:15 Temperature Pulse Rate 66 67 Respiratory 12 12 13 Rate Blood Pressure 86/54 78/52 (mmHg) O2 Sat by Pulse 95 95 Oximetry 06/26/19 06/26/19 06/26/19 20:28 20:30 20:45 Temperature Pulse Rate 74 Respiratory 16 19 Rate Blood Pressure 97/63 93/61 105/64 (mmHg) O2 Sat by Pulse 93 Oximetry 06/26/19 06/26/19 06/26/19 21:00 21:05 21:15 Temperature 99.2 F Pulse Rate 74 74 76 Respiratory 13 19 15 Rate Blood Pressure 89/59 105/64 98/62 (mmHg) O2 Sat by Pulse 95 93 95 Oximetry 06/26/19 06/26/19 06/26/19 21:30 21:45 22:00 Temperature Pulse Rate 76 79 76 Respiratory 15 11 13 Rate Blood Pressure 97/63 96/63 95/61 (mmHg) O2 Sat by Pulse 95 98 97 Oximetry 06/26/19 06/26/19 06/26/19 22:11 22:15 22:30 Temperature Pulse Rate 74 75 Respiratory 15 14 14 Rate Blood Pressure 97/62 102/65 (mmHg) O2 Sat by Pulse 97 97 Oximetry 06/26/19 06/26/19 06/26/19 22:45 23:00 23:15 Temperature Pulse Rate 73 75 74 Respiratory 4 14 15 Rate Blood Pressure 100/67 97/64 99/66 (mmHg) O2 Sat by Pulse 97 98 98 Oximetry 06/26/19 06/26/19 06/26/19 23:30 23:45 23:54 Temperature 99.3 F Pulse Rate 74 76 Respiratory 19 21 Rate Blood Pressure 108/68 109/79 (mmHg) O2 Sat by Pulse 99 98 Oximetry 06/27/19 06/27/19 06/27/19 00:00 00:04 00:15 Temperature Pulse Rate 93 87 85 Respiratory 21 21 21 Rate Blood Pressure 134/80 109/69 (mmHg) O2 Sat by Pulse 94 95 95 Oximetry 06/27/19 06/27/19 06/27/19 00:30 00:45 01:00 Temperature Pulse Rate 88 88 92 Respiratory 21 19 20 Rate Blood Pressure 100/69 111/70 108/69 (mmHg) O2 Sat by Pulse 95 95 95 Oximetry 06/27/19 06/27/19 06/27/19 01:30 02:00 02:30 Temperature Pulse Rate 86 87 86 Respiratory 13 20 19 Rate Blood Pressure 105/71 105/53 107/68 (mmHg) O2 Sat by Pulse 95 95 95 Oximetry 06/27/19 06/27/19 06/27/19 03:00 03:30 04:00 Temperature 100.6 F Pulse Rate 85 86 88 Respiratory 16 21 24 Rate Blood Pressure 115/70 111/74 115/77 (mmHg) O2 Sat by Pulse 96 96 97 Oximetry 06/27/19 06/27/19 06/27/19 04:30 05:00 05:30 Temperature Pulse Rate 92 92 84 Respiratory 23 23 15 Rate Blood Pressure 110/72 114/70 112/71 (mmHg) O2 Sat by Pulse 96 97 97 Oximetry 06/27/19 06/27/19 06/27/19 06:00 06:04 06:30 Temperature Pulse Rate 81 81 Respiratory 25 23 15 Rate Blood Pressure 109/75 109/69 (mmHg) O2 Sat by Pulse 97 98 Oximetry 06/27/19 06/27/19 06/27/19 07:00 07:18 07:20 Temperature 97.5 F Pulse Rate 81 Respiratory 13 13 Rate Blood Pressure (mmHg) O2 Sat by Pulse 96 Oximetry 06/27/19 06/27/19 06/27/19 08:00 09:00 09:20 Temperature Pulse Rate 77 89 79 Respiratory 14 24 22 Rate Blood Pressure 106/62 120/70 (mmHg) O2 Sat by Pulse 95 91 91 Oximetry 06/27/19 06/27/19 06/27/19 10:00 10:59 11:39 Temperature 98.7 F Pulse Rate 77 Respiratory 21 21 Rate Blood Pressure 103/70 (mmHg) O2 Sat by Pulse 94 Oximetry Intake and Output Last 24 Hours 06/25/19 06/26/19 06/27/19 06/28/19 06:59 06:59 06:59 06:59 Intake Total 2050 1687 5281 120 Output Total 450 1029 585 Balance 1600 1687 4252 -465 Weight 165 lb 165 lb 4.8 oz 169 lb 11.2 oz Intake: IV Fluids 1999 832 4478 LR 3959 NS (0.9%) 519 IVPB 50 255 113 ABX - FLAGYL 113 Oral 600 690 120 Output: JUNG #1 70 0 Urine 450 200 Sullivan 759 585 Other: Estimated Void Large Date of Last Bowel 06/27 Movement # Bowel Movements 0 1 # Voids 1 O2/Vent: 2LNC Infusions: LR @ 100 Medications: Acetaminophen (Tylenol Tab*) 650 mg PO Q6H PRN PRN Reason: MILD PAIN or TEMP > 100.4 Last Admin: 06/27/19 03:54 Dose: 650 mg Ceftriaxone Sodium 1 gm/ (Sodium Chloride) 50 mls @ 200 mls/hr IVPB Q24H APOLONIA Last Admin: 06/27/19 05:51 Dose: 200 mls/hr Metronidazole/Sodium Chloride (Flagyl 500 Mg Ivpb*) 500 mg in 100 mls @ 100 mls /hr IVPB 0630,1430,2230 COUNT INCLUDES THE [facility] Last Admin: 06/27/19 06:24 Dose: 100 mls/hr Lactated Ringer's (Lactated Ringers 1000 Ml Bag*) 1,000 mls @ 100 mls/hr IV PER RATE COUNT INCLUDES THE [facility] Influenza Virus Vaccine (Fluarix Quad [id number] Syr) 0.5 ml IM .ONCE ONE Stop: 06/28/19 09:01 Morphine Sulfate (Morphine Inj (Syringe))*) 2 mg IV Q4H PRN PRN Reason: PAIN - SEVERE Last Admin: 06/26/19 11:26 Dose: 2 mg Ondansetron HCl (Zofran Inj*) 4 mg IV Q6H PRN PRN Reason: NAUSEA Oxycodone/Acetaminophen (Percocet 5/325 Tab*) 1 tab PO Q4H PRN PRN Reason: PAIN - MILD Last Admin: 06/27/19 06:04 Dose: 1 tab Paroxetine HCl (Paxil Tab*) 20 mg PO DAILY COUNT INCLUDES THE [facility] Last Admin: 06/27/19 08:49 Dose: 20 mg Physical Exam: Constitutional: awake, alert, no distress, no diaphoresis Head: normocephalic, atraumatic Eyes: no pallor, no icterus ENT: moist mucous membranes Neck: soft, supple, no jvd, no stridor CVS: normal rate, regular, no murmur Chest/Resp: bilateral air entry, diminished in the bases, deep breaths are limited by abdominal pain with inspiration. Abdomen/GI: slightly distended, tender RLQ, BS+ Ext/Msk: warm, pulses+, no edema Skin: intact, warm Neuro: awake, alert, orientedx3, moving all extremities, no gross focal deficit Psych: normal affect Labs: Laboratory Results - last 24 hr 06/26/19 06/26/19 06/26/19 21:53 21:53 21:53 WBC 7.6 RBC 4.06 L Hgb 12.7 L Hct 37 L MCV 91 MCH 31 MCHC 35 RDW 13 Plt Count 132 L MPV 6.7 L Neut % (Auto) 90.1 Lymph % (Auto) 5.1 Ritchie % (Auto) 4.6 Eos % (Auto) 0.1 Baso % (Auto) 0.1 Absolute Neuts (auto) 6.9 Absolute Lymphs (auto) 0.4 L Absolute Monos (auto) 0.4 Absolute Eos (auto) 0.0 Absolute Basos (auto) 0.0 Absolute Nucleated RBC 0.0 Nucleated RBC % 0.0 Sodium 139 Potassium 4.0 Chloride 109 Carbon Dioxide 24 Anion Gap 6 BUN 17 Creatinine 1.03 Est GFR ( Amer) 92.5 Est GFR (Non-Af Amer) 76.4 BUN/Creatinine Ratio 16.5 Glucose 141 H Lactic Acid 0.8 Calcium 7.8 L Total Bilirubin AST ALT Alkaline Phosphatase Total Protein Albumin Globulin Albumin/Globulin Ratio 06/27/19 06/27/19 05:02 05:02 WBC 9.2 RBC 4.00 L Hgb 12.7 L Hct 37 L MCV 91 MCH 32 H MCHC 35 RDW 13 Plt Count 130 L MPV 6.8 L Neut % (Auto) 90.6 Lymph % (Auto) 3.8 Ritchie % (Auto) 5.4 Eos % (Auto) 0.0 Baso % (Auto) 0.2 Absolute Neuts (auto) 8.3 H Absolute Lymphs (auto) 0.4 L Absolute Monos (auto) 0.5 Absolute Eos (auto) 0.0 Absolute Basos (auto) 0.0 Absolute Nucleated RBC 0.0 Nucleated RBC % 0.0 Sodium 137 Potassium 4.0 Chloride 107 Carbon Dioxide 25 Anion Gap 5 BUN 15 Creatinine 0.98 Est GFR ( Amer) 98.0 Est GFR (Non-Af Amer) 81.0 BUN/Creatinine Ratio 15.3 Glucose 171 H Lactic Acid Calcium 7.9 L Total Bilirubin 0.60 AST 17 ALT 20 Alkaline Phosphatase 34 Total Protein 5.5 L Albumin 3.4 Globulin 2.1 Albumin/Globulin Ratio 1.6 Imaging: Patient Name: DAMARIS POWERS Medical Record#: [id number] Ordering Physician: Radha Harry NP Acct.#: [id number] : 1970 Age: 48 Sex: M Location: [address] [place] [address] MEDICAL Exam Date: 06/26/191911 ADM Status: ADM Corinna Order Information: US APPENDIX Accession Number: [id number] CPT: 38062 INDICATION: Right lower quadrant pain. COMPARISON: Comparison is made with a prior CT of the abdomen and pelvis from June 25, 2019. TECHNIQUE: Multiple real-time images of the right lower quadrant were obtained using a graded compression technique. FINDINGS: No free intraperitoneal fluid or localized fluid collections are seen. The appendix was not visualized limiting the study. The results of this exam were called to referring clinician. IMPRESSION: 1. THE APPENDIX IS NOT VISUALIZED LIMITING THE STUDY. 2. THE APPENDIX APPEARS PROMINENT ON THE PRIOR CT STUDY SUSPICIOUS FOR APPENDICITIS. PROCEDURE INFORMATION: Exam: CT Abdomen And Pelvis With Contrast Exam date and time: 06/25/2019 3:13 AM Age: 48 years old Clinical indication: Abdominal pain; Additional info: Acugte upper abd pain, vomiting TECHNIQUE: Imaging protocol: Computed tomography of the abdomen and pelvis with intravenous contrast. Radiation optimization: All CT scans at this facility use at least one of these dose optimization techniques: automated exposure control; mA and/or kV adjustment per patient size (includes targeted exams where dose is matched to clinical indication); or iterative reconstruction. Contrast material: OMNI 300; Contrast volume: 100 ml; Contrast route: IV; COMPARISON: C/A/P W CT CHEST/ABD/PEL W 08/16/2015 11:09 AM FINDINGS: Lungs: LINEAR OPACITIES LOCATED IN THE DEPENDENT PORTIONS OF THE LUNG CONSISTENT WITH AREAS OF ATELECTASIS. Liver: Normal. No mass. Gallbladder and bile ducts: Normal. No calcified stones. No ductal dilation. Pancreas: Normal. No ductal dilation. Spleen: Normal. No splenomegaly. Adrenals: Normal. No mass. Kidneys and ureters: Normal. No hydronephrosis. Stomach and bowel: ABNORMAL THICKENING OF THE WALL OF THE CECUM, ASCENDING COLON AND TRANSVERSE COLON. THE DESCENDING COLON AND SIGMOID COLON DO NOT SHOW ANY ABNORMAL MUCOSAL THICKENING. DIVERTICULI IN THE AREA OF THE DESCENDING SIGMOID COLON. NO EVIDENCE OF ACUTE DIVERTICULITIS. NO BOWEL OBSTRUCTION. THE APPEARANCE OF THE SMALL BOWEL IS NOT REMARKABLE. ON THE PRIOR CT SCAN OF 08/16/2015, THE BOWEL ABNORMALITY IS NEW. Appendix: No evidence of appendicitis. Intraperitoneal space: NO MESENTERIC INFLAMMATION. NO FREE INTRA-ABDOMINAL FLUID OR AIR. Vasculature: Unremarkable. No abdominal aortic aneurysm. Lymph nodes: NO MESENTERIC ADENOPATHY. NO PERIAORTIC OR PERICAVAL ADENOPATHY. Bladder: Unremarkable as visualized. Reproductive: Unremarkable as visualized. Bones/joints: Unremarkable. No acute fracture. Soft tissues: Unremarkable. IMPRESSION: THICKENING OF THE WALL OF THE CECUM, ASCENDING AND TRANSVERSE COLON. THIS RAISES THE POSSIBILITY OF AN INFLAMMATORY OR INFECTIOUS BOWEL DISEASE. NO SIGNIFICANT MESENTERIC INFLAMMATION. NO FREE INTRA-ABDOMINAL FLUID. NO MESENTERIC OR PERIAORTIC ADENOPATHY ADENOPATHY. Assessment: 48M with known medical history of testicular cancer in 2013 and anxiety, presents on 06/25 with c/o progressive abdominal pain with nausea and vomiting since 06/24. Abdominal CT showed thickening of the wall of the cecum as well as ascending and transverse colon. Concern for sepsis so was started on antibiotics. Patient was taken to OR on 06/26 for laprascopic appendectomy which was found to be perforated. He was transferred to ICU post op d/t hypotension. He was given fluid boluses. - Appendicitis with perforation - Hypotension - Sepsis Plan: Neuro- - No active issues -Delirium prec; avoid BDZ CVS- - Patient received fluid boluses and was started on LR @ 125. BP has been WNL so decreased LR to 100cc/hr. Vital signs has been WNL. -Titrate Pressors to Maintain MAP>65 Resp- -Currently on 2LNC. Wean Fio2 to keep sat>92% -Aspiration prec, Pulmonary Toilet, encourage incentive spirometry. - Patient not taking deep breaths d/t pain. Encourage IS, OOB to chair, increase ambulation ID- - Patient presented post op with signs of sepsis, MAP<60, SBP 80's. - Considering the perforated appendix, treated aggressively with IVF and antibiotics. Continue Flagyl and ceftrixone. - Has had low grade temps. Goal temp <38C GI- -Nutrition: Full liquid diet per surgery team -GI prophylaxis Renal- -Replete electrolytes to keep K>4, Mg>2 -Discontinue sullivan Heme- - No active issues - SCDs for DVT prophylaxis Endo-Maintain BG<200, insulin protocol as needed Musculsk- pressure ulcer prophylaxis. OOB to chair, increase ambulation Wounds- Lap sites on abdomen, dressings are clean, dry and intact Nutrition- Full liquid diet per surgery team DVT prophylaxis: SCDs GI prophylaxis: non needed Sullivan Cathetor: will remove today Disposition: Patient requires Critical Care/ICU for close monitoring, telemetry , post op sepsis Patient clinical status: Fair Code Status: Full Total Critical Care time is 30minutes <Santi Deluna - Last Filed: 06/27/19 13:02> Progress Note - Progress Note Note: Attending note - -post laparoscopic appendectomy -minimal pain, cont pain meds -bp stable, HR stable, hg stable -drain place -oob to chair, incentive spirometry -diarrhea+, likely from colitis -cont IV abx -advance diet as toelrated -followup with surgery santi deluna MD
[2019-06-27] MEDS: D5W 1/2 NS 1000 ML BAG* 1,000 ML IV SCH ×3 (12:42→22:49)
[2019-06-28] MEDS: cefTRIAXone(*) 1 GM in NS 0.9% 50 ML* 50 ML IVPB SCH (05:53)
[2019-06-28] MEDS: metroNIDAZOLE IV 500 MG/100ML* 500 MG/100 ML BAG IVPB SCH (06:39)
[2019-06-28] MEDS: oxyCODONE/Acetamin 5/325 MG* TAB PO PRN (06:39)
[2019-06-28] MEDS: PARoxetine HCL TAB* 20 MG PO SCH (08:16)
[2019-06-28] MEDS ORDERED: Ibuprofen TAB* 600 MG PO PRN (08:42)
[2019-06-28] MEDS ORDERED: Influenza VAC *QUAD* 2019-20* 0.5 ML SYRINGE IM ONE (09:00)
--- NOTE | 2019-06-28 09:55 | PN ---
Progress Note - Progress Note Date of Service: 06/28/19 SOAP: Subjective:yady solids;stools are loose;passing flatus;ambulating;good pain control [] Objective: Vital Signs Temp 98.6 F 06/28/19 08:57 Pulse 73 06/28/19 07:15 Resp 16 06/28/19 08:20 BP 107/69 06/28/19 07:15 Pulse Ox 96 06/28/19 07:15 Intake & Output 06/27/19 06/28/19 06/28/19 18:59 06:59 18:59 Intake Total 963 1293 105 Output Total 1230 720 Balance -267 573 105 Intake: IV Fluids 843 813 D5W 1/2 NS 200 813 LR 643 IVPB 105 ABX - FLAGYL 105 Oral 120 480 Output: JUNG #1 45 20 Urine 600 700 Torres 585 Other: Date of Last Bowel 06/27 Movement # Bowel Movements 1 Estimated Stool Amount Small lungs:clear bilat;heart:RRR;abd:+BS,soft,mildly distended,JUNG serous;incisions C/ D/I,no erythema;ext:nontender calves [] Assessment:POD#2 lap appy ;perf'd;afebrile and ambulating [] Plan:likely discharge home later today;JUNG drain removed;Ibuprofen added for pain management;recheck after lunch []
[2019-06-28 11:11] VITALS: BP 102/61
--- NOTE | 2019-06-28 16:39 | DS ---
CC: Dr. Breen; Dr. [place] Real * DATE OF ADMISSION: 06/25/2019. DATE OF DISCHARGE: 06/28/2019. ATTENDING SURGEON: Dr. Amadou Goldman * (dictated by Yudy Wu NP). HOSPITAL COURSE: Please refer to admission history and physical for admission details. The patient was taken to the operating room on 06/26/2019 and underwent laparoscopic appendectomy for acute perforated appendicitis. He was noted to be hypotensive and postoperative was admitted to the Intensive Care Unit. He had an otherwise uneventful postoperative course with stabilization of his blood pressure with IV fluid resuscitation. He was maintained on IV antibiotics. His white count normalized to 9.2 on 06/27/2019 and he was able to advance to a regular diet. His pain was well-controlled. He was ambulating in the halls and using his Inspiron. His blood glucose on 06/27/2019 was noted to be 171 and then a fingerstick glucose this morning was 131. He is not a diabetic and states that he had been drinking a large quantity of fruit juice. PHYSICAL EXAMINATION: General: He is well-developed, well-nourished and in no acute distress. Vital Signs: Temperature 98.4, pulse 72 and regular, respiratory rate 16, O2 saturation on room air 94 percent, and blood pressure 102/60. Skin: Warm, dry, intact. Lungs: Breath sounds bilaterally clear and equal. No rales or wheezes. Heart: Regular rate and rhythm. No murmurs or rubs. Abdomen: Laparoscopic incision sites are clean, dry, and intact with no surrounding erythema or active bleeding. Larry-Neumann drainage was serous. Dr. Goldman advised removing the Larry-Neumann drain before discharge. The Larry-Neumann drain was removed with ease and a dry sterile 4 x 4 was placed over the exit site which was clean, without any erythema or purulent drainage. His abdomen was soft with minimal distention and appropriate incisional tenderness. Bowel sounds are active. Extremities: Warm without edema or skin ulceration. IMPRESSION: Postoperative day two, status post laparoscopic appendectomy for acute perforated appendicitis, doing well. CONDITION ON DISCHARGE: Stable. PLAN: Discharge home today. He will take a ten day course of Cipro and Metronidazole. Dietary advice was given. Activity limitations were discussed. He will use ibuprofen [id number] for mild discomfort and he has a prescription for Oxycodone/acetaminophen as needed for stronger pain. A note for his employer was provided. He has a follow-up office visit on 07/05/2019. He knows to call our office with any concerns. SUNNI WU, SIDNEY [id number]/[facility] #: [id number] DARIA
--- NOTE | 2019-07-01 05:10 | HP ---
HISTORY AND PHYSICAL: ADDENDUM: DATE OF ADMISSION: 06/25/19 REVIEW OF SYSTEMS: The patient does not have any fever, however, he is having some chills. No recen t weight loss. He does not have any chest pain. No shortness of breath. No changes in his vision o r his hearing. No sore throat. No changes in his urination. No burning upon urination. No headach es. Otherwise, a full review of systems was done, otherwise as listed in the HPI. [id number]/[facility] #: [id number]
== END 2019-06-28 15:30 | disposition home or self-care (01) | DRG 853 ==
LOC: ED → MED 07:47 → OBSVTOIN 06-26 14:36 → ICU 06-26 20:12 → SSU 06-27 12:08
PROVIDERS: ADMIT Internal Medicine; ATTEND Surgery
PROC: 0DTJ4ZZ Resection of Appendix, Percutaneous Endoscopic Approach (ICD-10-PCS; principal; 2019-06-26 17:30)
DX: A41.9 Sepsis, unspecified organism (principal); F32.9 Major depressive disorder, single episode, unspecified; K35.33 Acute appendicitis with perforation, localized peritonitis, and gangrene, with abscess; F41.9 Anxiety disorder, unspecified; Z92.21 Personal history of antineoplastic chemotherapy; Z92.3 Personal history of irradiation; Z23 Encounter for immunization; Z88.0 Allergy status to penicillin; Z91.013 Allergy to seafood; Z90.79 Acquired absence of other genital organ(s); Z85.47 Personal history of malignant neoplasm of testis
CPT/HCPCS: 36415; 74177; 76705; 80048; 80053; 81003; 83605; 83690; 85025; 86140; 87040; 87493; 88304; 90686; 96374; 99284; A9270-GY; C1776; G0378; J0696; J1100; J1170; J2270; J2405; J2543; J2704; Q9967